=== PATIENT | male | born 1955 | race Caucasian/White ===

== ENCOUNTER 2016-12-01 17:40 | Inpatient (IN) | payer OTHER ==
[~2016-12-01] VITALS: Ht 167.6 cm; Wt 56.0 kg
--- NOTE | ~2016-12-01 | ECHO ---
Transthoracic Echocardiography Report (TTE) Demographics Patient Name JEREMY GLOVER Date of Study 12/02/2016 Patient Number [id number] Visit Number [id number] Date of 1955 Room Number G6211 Gender Male Number Age 60 year(s) Referring [facility] Sugar Refiner Matty Hauser RDCS, Physician Toñito RVT, RDMS, WARDROBE CUSTODIAN Physician Interpreting Beatriz Aguilar A Cnp Physician Supervising Ordering Victorina Brantley MD, MD/MLP Physician Nurse Stress Licensed Mortgage Loan Officer Conclusions Contractility Score Summary Normal Left Ventricular contractility was noted. Summary The estimated left ventricular ejection fraction is 55-60%. Normal biventricular systolic function. Biatrial dilatation. Mild age related valvular changes with mild mitral and tricuspid regurgitation. Procedure Type of Study TTE procedure:2D Echocardiogram, M-Mode, Doppler , Color Doppler. Procedure Date Date: 12/02/2016 Start: 07:00 AM Study Location: Inpatient Portable Technical Quality: Good visualization Indications:Chest pain. Additional Indications:Pre OP clearance Appropriate Use Criteria: 9 Patient Status: ALESSANDRO Rhythm: NSR HR: 76 bpm BP: 170/91 mmHg M-Mode/2D Measurements LV Diastolic Dimension: 4.66 cm LV Systolic Dimension: 3.06 cm LV Septum Diastolic: 0.84 cm LV PW Diastolic: 0.96 cm AO Root Dimension: 2.9 cm Cardiac Output: 6.28 l/min AV Cusp Separation: 1.7 cm RV Diastolic Dimension: 3.43 cm LA volume: 105 ml LVOT: 2 cm RV Base: 4.7 cm LVOT VTI: 26.3 cm RV Mid: 3.9 cm LV Stroke volume: 82.58 ml TAPSE: 2.5 cm TDI-S': 13 cm/s Doppler Measurements AV Peak Velocity: 1.32 m/s MV Peak E-Wave: 0.84 m/s AV Peak Gradient: 6.97 mmHg MV Peak A-Wave: 0.75 m/s AV Mean Gradient: 3 mmHg MV E/A Ratio: 1.12 LVOT Peak Velocity: 1.25 m/s MV P1/2t: 73 msec TR Gradient:27.46 mmHg PV Peak Velocity: 1 m/s Estimated RAP:3 mmHg PV Peak Gradient: 3.99 mmHg Estimated RVSP: 30 mmHg Estimated PASP: 30.46 mmHg E' Septal Velocity: 0.1 m/s A' Septal Velocity: 0.12 m/s E' Lateral Velocity: 0.14 m/s A' Lateral Velocity: 0.08 m/s Findings Left Ventricle Normal left ventricle size and function. Diastolic assessment reveals Grade I diastolic dysfunction. Right Ventricle Mild dilated right ventricle. Left Atrium The left atrium is moderately dilated when indexed to the BSA. Right Atrium The right atrium is moderately dilated. IVC measures 1.6 cm with inspiratory collapse. Mitral Valve Mild calcification of the mitral valve. Mild mitral regurgitation by color Doppler. Aortic Valve The aortic valve is mildly sclerotic. No significant aortic stenosis or insufficiency. Tricuspid Valve Mild tricuspid regurgitation by color Doppler. Normal estimated pulmonary artery pressure. Pulmonic Valve The pulmonic valve is not well visualized. Pericardial Effusion No evidence of pericardial effusion. Miscellaneous Visualized portions of the aortic root and ascending aorta appear normal in size. Possibly mobile plaque in the aortic root Pleural Effusion No evidence of pleural effusion. Contractility Score LV regional wall motion:(0-Non visualized 1-Normal 2-Hypokinesis 3-Akinesis 4-Dyskinesis 5-Aneurysm) Signature dtt: Macey Henderson dtd: 12/02/16 0700 Physician Self Edit
--- NOTE | ~2016-12-01 | DS ---
PATIENT'S NAME: JEREMY GLOVER [facility] AGE: 60 Y [address] ROOM: [place] [address] LOCATION: [facility] ADMIT DATE: 12/01/2016 Discharge Summary DISCHARGE DATE: 12/03/2016 FAMILY PHYSICIAN: RACHEL HUGHES ATTENDING PHYSICIAN: Toñito Hill ADMITTING DIAGNOSIS: Anemia of blood loss. DISCHARGE DIAGNOSES: 1. Anemia. 2. Esophageal mass suspicious for malignancy. SECONDARY DIAGNOSES: 1. Chronic obstructive pulmonary disease. 2. Moderate protein calorie malnutrition. 3. Chronic obstructive pulmonary disease. 4. Hypertension. PROCEDURE: EGD which shows esophageal mass and CT chest and abdomen that shows esophageal mass and no metastasis. CONSULTATION: GI. HISTORY OF PRESENT ILLNESS: The patient is a 60-year-old male who presented initially to his primary care physician with complaint of epigastric pain. At the time of the complaint, he also reports of poor appetite and loss of 20 pounds in the past 3 months. Because of all these symptoms, the patient went to outside facility at [place], [place], for evaluation. Over there, the patient was found to have extreme anemic with hemoglobin around 4. The patient was transfused 1 L of packed red blood cells and transferred to our facility. HOSPITAL COURSE: On initial evaluation, the patient was found to have hemoglobin of 5.9. The patient was transfused 3 units of packed red blood cells. The patient was initially started on octreotide drip and Protonix drip. GI was consulted. The patient had EGD done. EGD shows esophageal mass. Biopsy was taken. CT abdomen and pelvis was done to evaluate for metastasis. CT abdomen and pelvis did not show any signs of metastasis except for the esophageal mass which appears to be primary esophageal from the image. The patient was transfused here with 3 units of packed red blood cells during his stay, his hemoglobin was stable during stay. On day of discharge, his hemoglobin is 8.9. The patient and his had discussion with them about the finding. I suggested the patient to be followed by oncologist. However, the patient wants to wait on the biopsy results and want to follow with PATIENT'S NAME: JEREMY GLOVER [facility] AGE: 60 Y [address] ROOM: [place] [address] LOCATION: [facility] ADMIT DATE: 12/01/2016 Discharge Summary DISCHARGE DATE: 12/03/2016 FAMILY PHYSICIAN: RACHEL HUGHES ATTENDING PHYSICIAN: Toñito Hill primary care physician for now before they see an oncologist. CONDITION: Stable. DISPOSITION: Home. DISCHARGE MEDICATION: Please see MAR. DISCHARGE INSTRUCTION: If the patient does have worsening of epigastric pain, hematemesis, severe nausea and vomiting, and hematochezia to go to the emergency department. PENDING STUDIES: Esophageal biopsy. FOLLOWUP: Follow up with primary care physician within 1 week. Greater than 30 minutes was spent on discharge planning. MD STEPHEN SORIANO/laura /[id number] d: 12/03/16 1235 t: 12/03/16 1559, DISCHARGE SUMMARY
--- NOTE | ~2016-12-01 | CON ---
PATIENT'S NAME: JEREMY GLOVER [facility] AGE: 60 Y [address] ROOM: [address] [place], [place] [address] LOCATION: GICU ADMIT DATE: 12/01/2016 Consultation DISCHARGE DATE: FAMILY PHYSICIAN: RACHEL HUGHES ATTENDING PHYSICIAN: TAMERA HUI DATE OF CONSULTATION: 12/02/2016 REFERRING PHYSICIAN: Malcom Adams MD REFERRING PROVIDER: Anupama Charles MD REASON FOR CONSULTATION: Acute blood loss anemia. HISTORY OF PRESENT ILLNESS: This is a pleasant 60-year-old gentleman who states he does not frequent healthcare providers frequently. He was seen at an outside facility with complaints of right upper quadrant pain with radiation to the left upper quadrant as well as mid epigastric area. He does have a history of alcoholism with drinking approximately 12 beer a day. He states over the past 6 months, this has been decreased to less than a 6 pack of beer per day. Then, up until 2 weeks ago, he states that he has discontinued drinking as he generally has not felt good. He denies any melena or hematochezia, hematemesis, or any other evidence of blood loss. Denies any constipation. He states that he has a normal bowel movement without any complications. He does state that when he was drinking alcohol, his bowel movements were more significantly loose. He also does endorse a weight loss of approximately 20 pounds in the past 3 months. Denies any history of upper endoscopy or colonoscopy. He also denies any NSAID use. On evaluation at outside facility, he was found to be extremely anemic of a hemoglobin around 4. CT of abdomen and pelvis with contrast only showed hepatic steatosis and moderate amount of stool throughout the large bowel and chronic lumbar spine degenerative changes. The patient was then transferred to [facility] for definitive care. He now has received a total of 4 units of packed red blood cells with the 4th unit currently infusing. Last hemoglobin checked was completed this morning with a hemoglobin of 7.6, hematocrit of 24.0. The patient denies any again, associated change in bowels. He does complain of some mid epigastric discomfort that he states usually starts in the right upper quadrant with radiation to the mid epigastric and left upper quadrant. Denies any nausea or vomiting as well. PAST MEDICAL HISTORY: History of alcoholism, COPD, hypertension, and rosacea. He also does endorse a history of melena though. He states that this resolved after utilizing PATIENT'S NAME: JEREMY GLOVER [facility] AGE: 60 Y [address] ROOM: [address] [place], [place] [address] LOCATION: GICU ADMIT DATE: 12/01/2016 Consultation DISCHARGE DATE: FAMILY PHYSICIAN: RACHEL HUGHES ATTENDING PHYSICIAN: TAMERA HUI for a few weeks. PAST SURGICAL HISTORY: He denies any upper endoscopy or colonoscopy. SOCIAL HISTORY: He is a former cigarette smoker, smoking approximately four packs per day for a number of years. He quit roughly 7 years ago. He also admits to heavy alcohol use with 12 pack of beer per day for roughly 40 years. He does state over the past 6 months, this has decreased to less than 6 per day and states that he has only intermittently used over the past few weeks due to generalized not feeling well. He uses marijuana on a day-to-day basis. Denies any other illegal or illicit drugs. FAMILY HISTORY: The patient's parents, both have atrial fibrillation. He denies any known gastrointestinal diseases or cancers. ALLERGIES: NO KNOWN MEDICATION ALLERGIES. CURRENT MEDICATIONS: Please refer to the medication administration record. REVIEW OF SYSTEMS: An all-point review of systems was completed. All were negative except for those identified in the history of present illness. PHYSICAL EXAMINATION: GENERAL: A pleasant 60-year-old gentleman, seen in the intensive care, lying in bed, who appears to be in no acute distress. VITAL SIGNS: Temperature 98.1, pulse of 80, respirations of 18, blood pressure 122/74, and oxygen saturations is 95% on room air. SKIN: [place], warm, and dry. No jaundice. HEENT: Head is normocephalic and atraumatic. Pupils are equal, round, and reactive to light. Sclerae are clear, nonicteric. Oral mucosa is pink and moist. NECK: Soft and supple. CARDIOVASCULAR: Regular. Normal S1 and S2. RESPIRATORY: Respirations even and unlabored. LUNGS: Clear to auscultation. ABDOMEN: Soft, round, tender in the mid epigastric area, right upper quadrant and left upper quadrant. No rebound, rigidity, or guarding noted. Bowel sounds are positive. MUSCULOSKELETAL: No muscle weakness or atrophy. PATIENT'S NAME: JEREMY GLOVER [facility] AGE: 60 Y [address] ROOM: [address] [place], [place] [address] LOCATION: [facility] ADMIT DATE: 12/01/2016 Consultation DISCHARGE DATE: FAMILY PHYSICIAN: RACHEL HUGHES ATTENDING PHYSICIAN: TAMERA HUI EXTREMITIES: No edema. NEUROLOGICAL: Grossly nonfocal. LABORATORIES AND DIAGNOSTICS: Cardiac enzymes have been within normal limits. Most recent hemoglobin showed as 7.6, hematocrit was 24.0. Chemistry panel includes a glucose of 211, BUN of 11, creatinine 0.7, sodium 134, potassium of 3.8, chloride of 105, and CO2 at 20. Albumin low at 2.1, AST of 12, ALT of 13, alkaline phosphatase of 58, total bilirubin 1.5, and direct bilirubin 0.3. Magnesium 1.9. Hemoglobin A1c was 5.9, iron 66, TIBC is 215, percent saturation is 31, and ferritin 11.3. ASSESSMENT AND PLAN: Again, this is a very pleasant 60-year-old gentleman who was transferred from an outside facility with severe anemia. The patient has been transfused a total of 4 units of packed red blood cells at this time. He denies any known evidence of blood loss. He also does have a significant history of alcohol use, though denies any history of diagnosis of cirrhosis or varices. The patient currently has been placed on Protonix and octreotide. At this time, we will go forth with an upper endoscopy for acute blood loss anemia as well as noted mid epigastric discomfort. If negative, it was discussed with the patient that a possible colonoscopy may be warranted though. Further recommendations will be given status post upper endoscopy. Thank you for this consult. ROJELIO HODGE APRN FOR MD TRENTON HUMPHREY/alliel /[id number] d: 12/02/16 1728 t: 12/07/16 1210, CONSULTATION REPORT
--- NOTE | ~2016-12-01 | HP ---
PATIENT'S NAME: JEREMY GLOVER [facility] AGE: 60 Y [address] ROOM: [address] [place], [place] [address] LOCATION: [facility] ADMIT DATE: 12/01/2016 History & Physical DISCHARGE DATE: FAMILY PHYSICIAN: PHYSICIAN, UNKNOWN ATTENDING PHYSICIAN: TAMERA HUI DATE OF SERVICE: CHIEF COMPLAINT: Dizziness upon standing, abdominal pain, poor appetite, exertional dyspnea, weight loss, and generalized weakness. HISTORY OF PRESENT ILLNESS: This is a 60-year-old male who only sees his primary care physician once a year and who says that for the last year he has been complaining of right upper quadrant pain with radiation to the left upper quadrant and epigastric area, more intense in the epigastric area, and sometimes travels up to bilateral lower ribs. He says that the epigastric pain is worse with eating within the first few minutes. He strongly denies any melena, hematochezia, hematemesis, hematuria, hemoptysis, or coffee-ground emesis. He states that he also denies constipation. He states that he has bowel movement regularly everyday and color is brown and of normal consistency and this is according to the patient. At the same time, he also complains of weight loss with poor appetite roughly about 20 pounds in the last 3 months. He also complained of pain that is chronic in the lower back and also in the posterior neck, which is chronic and has not changed. He also complained of dizziness upon standing in the last 2 months. Because of all these problems, the patient also complains of some exertional dyspnea for the last 2 months. He is a heavy smoker about 4 pack per day of cigarettes for many years and he quit about 7 years ago. He was also a heavy alcohol drinker about 12 packs of beers per day for roughly 40 years, but he quit just roughly 2 weeks ago. The patient also chronically takes aspirin at home on a daily basis. He denies any colonoscopy or any upper endoscopy in the past. Because of all these symptoms, the patient went to outside facility in [place], [place] for evaluation. Over there, the patient was found to be extremely anemic of hemoglobin around 4s and he also got a CT scan of the abdomen and pelvis with contrast which only showed hepatic steatosis and moderate amount of stool throughout the large bowel and chronic lumbar spine degenerative changes. The patient got 1 L of normal saline bolus followed by 1 unit of packed red blood cell transfusion and the patient was sent over here for further care. REVIEW OF SYSTEMS: PATIENT'S NAME: JEREMY GLOVER [facility] AGE: 60 Y [address] ROOM: [address] [place], [place] [address] LOCATION: [facility] ADMIT DATE: 12/01/2016 History & Physical DISCHARGE DATE: FAMILY PHYSICIAN: PHYSICIAN, UNKNOWN ATTENDING PHYSICIAN: TAMERA HUI As mentioned in the history of present illness. All other systems reviewed and were negative except those mentioned in history of present illness. PAST MEDICAL HISTORY: 1. COPD, not on home oxygen. 2. Hypertension. 3. Rosacea. 4. History of melena in the past, but he states that he was given Protonix and it resolved. ALLERGIES: NONE. HOME MEDICATIONS: Currently, it is being reconciled, but he does take aspirin at home on a daily basis. SOCIAL HISTORY: The patient was a former cigarette smoker about 4 pack per day for many years and he quit just roughly 7 years ago. He also was a heavy alcohol drinker about 12 pack of beers per day for roughly 40 years and he quit just roughly 2 weeks ago. He uses marijuana daily. He denies any IV or illegal drugs. FAMILY HISTORY: Both parents have atrial fibrillation, but he denies any cancer in the father or in the mother. PAST SURGICAL HISTORY: None. PHYSICAL EXAMINATION: VITAL SIGNS: At the time of evaluation, temperature 98, blood pressure 131/87, respirations 16, saturation 98% on room air, and also heart rate of 77. GENERAL APPEARANCE: The patient is pale and alert and oriented x3. Currently, in no acute distress. The patient is frail looks older than his age and also is cachectic. HEENT: Pupils are equally round and reactive to light. Extraocular muscles intact. Anicteric sclerae. Nasal turbinates are normal bilaterally. Dry oral mucosa. NECK: No JVD. CARDIOVASCULAR: Regular rate and rhythm. Normal S1, S2. No murmurs, no rubs, no gallops. RESPIRATORY: Clear to auscultation. However, very diffuse breath sounds diffusely. No rales, no rhonchi, no wheezing, no crackles. PATIENT'S NAME: JEREMY GLOVER [facility] AGE: 60 Y [address] ROOM: [address] [place], [place] [address] LOCATION: [facility] ADMIT DATE: 12/01/2016 History & Physical DISCHARGE DATE: FAMILY PHYSICIAN: PHYSICIAN, UNKNOWN ATTENDING PHYSICIAN: TAMERA HUI ABDOMEN: Tenderness to palpation in the right upper quadrant epigastric area and left upper quadrant. No rebound tenderness. No abdominal rigidity. Bowel sounds present. No palpable mass. No ascites. EXTREMITIES: No edema in upper or lower extremities. SKIN: No ulcer, no rash, no cyanosis. NEUROLOGICAL: Grossly nonfocal. LABORATORY DATA: Currently, our blood work showed lactic acid 0.9. Cardiac enzyme pending. White blood cell 9.6, hemoglobin 5.9, hematocrit 19.2, and platelet 394. Chemistry panel, liver function, magnesium, phosphorus, INR, PTT, GFR, and iron panel, currently all pending. Procalcitonin also pending. Urinalysis also pending. IMAGING STUDIES: CT scan of abdomen and pelvis from the outside facility with contrast show hepatic steatosis and moderate amount of stool seen throughout the large bowel and the lumbar spinal degenerative changes. ASSESSMENT AND PLAN: 1. Regarding his presumed chronic blood loss anemia: The patient is hemodynamically stable. He does have risk factor for liver disease from heavy alcohol drinking in the past. He also has daily aspirin use. Given that patient is hemodynamically stable and denies any melena, hematuria, hematochezia, or coffee-ground emesis, likely he has chronic gastrointestinal blood loss. He also has weight loss. My differential will be most likely he probably has peptic ulcer disease given that his epigastric area is tender with the first few bites when he eats. I will cover him with intravenous Protonix bolus followed by drip. Give him 2 more units of blood right now to keep the hemoglobin more than 8. Continue intravenous fluids for hydration. Given that he also has risk factors for liver disease, I also worry about esophageal varices; therefore, I am going to cover him with intravenous octreotide bolus followed by drip. N.p.o. I will get a Hemoccult blood test x3. Check iron panel and transfuse as needed to keep hemoglobin more than 8. I am going to contact on-call GI regarding timing of potential colonoscopy and EGD. Given that the patient rarely see a physician and he has many risk factors for cardiovascular disease, I am going to get EKG, cardiac enzymes, and also get an echo in the morning to make sure the patient can safely undergo EGD and colonoscopy under sedation. If the echo, EKG, or cardiac enzymes came back abnormal then endoscopy will be delayed until patient is seen and cleared by Cardiology. In the meantime, the patient will be on telemetry monitoring. I will also get lipid panel and A1c to assess his cardiovascular risks. Further plan will depend on clinical PATIENT'S NAME: JEREMY GLOVER [facility] AGE: 60 Y [address] ROOM: [address] [address] LOCATION: [facility] ADMIT DATE: 12/01/2016 History & Physical DISCHARGE DATE: FAMILY PHYSICIAN: PHYSICIAN, UNKNOWN ATTENDING PHYSICIAN: TAMERA HUI. 2. Regarding his chronic obstructive pulmonary disease: Currently, not in flare. I am going to get a chest x-ray right now and also get a KUB, KUB to rule out free air and chest x-ray to look for any lung mass. If there is any mass, I am concerned about lung cancer given that he has weight loss; however, he could also have a colon cancer due to the weight loss and anemia. Either way, if the chest x-ray showed anything unusual, we will get a CAT scan of the chest to further evaluate for any lung mass for potential lung cancer. Further plan will depend on clinical course. Also, I will get an RT to give nebulization per RT assessment for his chronic obstructive pulmonary disease. 3. Regarding his hypertension: Hold blood pressure medications in the setting of anemia. 4. He is a full code. Time spent in care on the day of admission was 70 minutes, where 20 minutes was spent on chart review and the remainder of the time was spent on interview and physical examination and also on counseling. I spent a large amount of time with the patient and the patient's going over the plan of care and they had several questions about the condition and also the patient was very hesitant about undergoing EGD and colonoscopy and I spent a large amount of time with the patient and the patient's regarding the benefit and risks and the importance of undergoing EGD and colonoscopy to get to the bottom of the problem. Further plan will depend on clinical course. I answered all their questions and concerns to their satisfaction. This time also includes placing a phone call to the on-call GI specialist about the case. Further plan will depend on clinical course. MD RHODA KRUSE/laura /[id number] D: [id number] T: [id number] HISTORY & PHYSICAL
[2016-12-01] MEDS ORDERED: PROAIR HFA8.5 GM INH (21:22)
[2016-12-01] MEDS ORDERED: GLUCOSAMINE &1 EAC1 PO (21:30)
[2016-12-01] MEDS ORDERED: TYLENOL325 MG PO (21:31)
[2016-12-01] MEDS ORDERED: ALBUTEROL2.5 MG/31 INH (21:32)
[2016-12-01] MEDS ORDERED: ASPIRIN325 MG PO (21:33)
[2016-12-01] MEDS ORDERED: DOXYCYCLINE100 MG PO (21:34)
[2016-12-01] MEDS ORDERED: PRINIVIL (ZESTR20 MG PO (21:35)
[2016-12-01] MEDS ORDERED: THERAGRAN-M1 TAB PO (21:37)
[2016-12-01] MEDS ORDERED: NITROSTAT0.4 MG SL (21:38)
[2016-12-01] MEDS ORDERED: LACTINEX (FLORA1 TAB PO (21:39)
[2016-12-01] MEDS ORDERED: PRILOSEC20 MG PO (21:39)
[2016-12-01] MEDS ORDERED: CLARITIN10 MG PO (21:40)
[2016-12-01 21:48] LABS: BASOPHIL % 0.2 %; EOSINOPHIL # 0.1 K/uL (0.0-0.5); EOSINOPHIL % 0.7 %; HEMATOCRIT 19.2 % (37.0-53.0); IMMATURE GRANULOCYTE % 0.3 %; LYMPHOCYTE # 1.5 K/uL (0.8-4.0); MCH 21.4 pg (27.0-34.0); MCHC 30.7 gm/dL (32.0-36.5); MCV 69.6 fl (83.0-98.0); MONOCYTE # 1.2 K/uL (0.0-1.0); MONOCYTE % 12.8 %; MPV 9.5 fl (9.4-12.4); NEUTROPHIL # (ANC) 6.7 K/uL (1.4-9.0); NRBC % 0 /100WBC (0-0.00); PLATELET COUNT 394 K/uL (150-450); RBC 2.76 M/uL (3.50-5.50); RDW-CV 21.5 % (11.9-14.6); WBC 9.6 K/uL (4.0-11.0)
[2016-12-01 21:51] LABS: HEMOGLOBIN 5.9 g/dL (11.0-16.0)
[2016-12-01 22:02] LABS: INR - (THERAPEUTIC) 1.03 (0.92-1.07); PROTIME 10.8 SECONDS (9.8-11.4); PTT 31 SECONDS (25-32)
[2016-12-01 22:11] LABS: ANION GAP 13.7 (10.0-19.0); BLOOD UREA NITROGEN 15 mg/dL (6-24); CALCIUM 8.5 mg/dL (8.5-10.5); CHLORIDE 103 mMol/L (96-110); CO2 20 mMol/L (22-32); CPK 17 IU/L (35-332); CREATININE 0.7 mg/dL (0.6-1.3); MAGNESIUM 1.9 mg/dL (1.8-2.6); POTASSIUM 3.7 mMol/L (3.7-5.1); SODIUM 133 mMol/L (135-145)
[2016-12-01 22:24] LABS: ALBUMIN 2.1 gm/dL (3.5-5.0); TOTAL BILIRUBIN 1.5 mg/dL (0.0-1.5); TOTAL PROTEIN 5.5 g/dL (6.0-8.4)
[2016-12-01 23:11] LABS: BILIRUBIN URINE NEGATIVE (NEGATIVE); BLOOD URINE NEGATIVE /UL (NEGATIVE); COLOR URINE YELLOW (YELLOW); GLUCOSE URINE NEGATIVE (NEGATIVE); KETONE URINE 50 mg/dL (NEGATIVE); LEUKOCYTES URINE NEGATIVE /UL (NEGATIVE); NITRITE URINE NEGATIVE (NEGATIVE); PROTEIN URINE 15 mg/dL (NEGATIVE); TURBIDITY URINE CLEAR (CLEAR); UROBILINOGEN URINE NORMAL (NORMAL)
[2016-12-01 23:22] LABS: BACTERIA URINE NEGATIVE (NEGATIVE); EPITHELIAL URINE 0-2 #/HPF (NEGATIVE); RBC URINE 0-2 #/HPF (NEGATIVE); WBC URINE 0-2 #/HPF (NEGATIVE)
--- NOTE | 2016-12-02 04:44 | NUR ---
Significant Event: Patient to ICU apprix 2045, alert, oriented et cooperative. PERRLA, equal but weak strength thorougout. LS clear, 99-100% on RA. Requests PRN treatment per RT. BS x4, clear liquid diet. C/O headache et back pain, PRN Morphine given x2, relief stated. 2units PRBC's given for hgb of 5.9,. L) AV et R) AC PIV's patent, flushes well, good blood return, drsg CDI. Follow up:
[2016-12-02 06:13] LABS: HEMOGLOBIN 7.6 g/dL (11.0-16.0)
[2016-12-02 08:52] LABS: ANION GAP 12.8 (10.0-19.0); BLOOD UREA NITROGEN 11 mg/dL (6-24); CALCIUM 7.9 mg/dL (8.5-10.5); CHLORIDE 105 mMol/L (96-110); CO2 20 mMol/L (22-32); CREATININE 0.7 mg/dL (0.6-1.3); POTASSIUM 3.8 mMol/L (3.7-5.1); SODIUM 134 mMol/L (135-145)
[2016-12-02 16:02] LABS: HEMOGLOBIN 8.4 g/dL (11.0-16.0)
--- NOTE | 2016-12-02 17:02 | NUR ---
Introduced self and role of care management to pt. [place] He states he does have a (second marriage) and 5 children but 5 are up in [place]. HE states he is very independent with cares just not feeling very well. I asked about his drinking and he states he quit about 2 weeks ago and even then had only 2-3 because he did not feel well then quit. I asked about counselors and information on treatment and he denies. He is hoping to find the source of bleeding and then to go home. HE doctors up in [facility]. WIll continue to follow.
--- NOTE | 2016-12-02 18:01 | NUR ---
ASSUMED CARE OF PATIENT IN THE MORNING, HE HAD A 2 D ECHO , EGD SCOPE WITH GI TODAY. BIOPSY TAKEN DURING EGD. PATIENT HAD 1 UNIT OF PRBD'S TODAY, HIS VITALS WERE STABLE THRUOUT THE DAY. WITH HIM AT ALL TIMES. CT CHEST , ABD, PELVIS IN AM. IV FLUIDS STILL CONTD.
--- NOTE | 2016-12-03 04:50 | NUR ---
Significant Event: Patient is A/O, c/o back et head pain rated at a 5-7 on a 0-10 scale, PRN Morphine given x3 with relief. Neurologically intact, denies numbness or tingling. LS clear/dim in bases, SpO2 >95 on RA. Max temp 99.5, SBPs 130-140s. BS x4, tenderness on palpation, tolerates clear liquid diet well. PIV's x2, no blood return but flushes well, NS running at 100/hr. Down to CT for abdominal/pelvic scan with contrast. Slept well t/o noc with call light in reach. Follow up: Possible DC home today.
[2016-12-03 06:09] LABS: BASOPHIL % 0.4 %; EOSINOPHIL # 0.2 K/uL (0.0-0.5); HEMATOCRIT 28.5 % (37.0-53.0); HEMOGLOBIN 8.9 g/dL (11.0-16.0); IMMATURE GRANULOCYTE # 0.1 K/uL (0.0-0.3); IMMATURE GRANULOCYTE % 0.5 %; LYMPHOCYTE # 0.9 K/uL (0.8-4.0); LYMPHOCYTE % 8.7 %; MCHC 31.2 gm/dL (32.0-36.5); MONOCYTE # 1.2 K/uL (0.0-1.0); MPV 8.8 fl (9.4-12.4); NEUTROPHIL # (ANC) 8.3 K/uL (1.4-9.0); NEUTROPHIL % 77.4 %; NRBC % 0 /100WBC (0-0.00); PLATELET COUNT 324 K/uL (150-450); RDW-CV 21.1 % (11.9-14.6); WBC 10.8 K/uL (4.0-11.0)
[2016-12-03 06:13] LABS: MCH 22.9 pg (27.0-34.0); MCV 73.3 fl (83.0-98.0); RBC 3.89 M/uL (3.50-5.50)
[2016-12-03 06:21] LABS: ANION GAP 12.7 (10.0-19.0); CALCIUM 8.2 mg/dL (8.5-10.5); CHLORIDE 102 mMol/L (96-110); CO2 21 mMol/L (22-32); CREATININE 0.5 mg/dL (0.6-1.3); MAGNESIUM 1.8 mg/dL (1.8-2.6); PHOSPHORUS 3.2 mg/dL (2.5-4.9); POTASSIUM 3.7 mMol/L (3.7-5.1); SODIUM 132 mMol/L (135-145)
[2016-12-03 06:25] LABS: ALBUMIN 1.9 gm/dL (3.5-5.0); BLOOD UREA NITROGEN 5 mg/dL (6-24)
--- NOTE | 2016-12-03 12:05 | NUR ---
PATIENT ASSESSMENT DONE. PRIMARY PHYSICIAN SAW HIM TODAY AND ADVISED DISCHARGE. ALL IVS REMOVED AND DISCONTINUED.TELEMON DISCONTINUED.
[2016-12-03] MEDS ORDERED: PROTONIX40 MG PO (12:09)
[2016-12-03] MEDS ORDERED: FEOSOL325 MG PO (12:09)
--- NOTE | 2016-12-03 12:47 | NUR ---
PATIENT DISCHARGED PER ORDERS.DISCHARGE INSTRUCTIONS EXPLAINED AND FOLLOW UP APPOINTMENTS EXPLAINED. TRANSPORTED TO FRONT DOOR VIA WHEELCHAIR.
== END 2016-12-03 12:35 | disposition disaster alternative care site (69) | DRG 812 ==
LOC: GICU 20:40
PROVIDERS: Internal Medicine; ADMIT Internal Medicine
PROC: 30233N1 Transfusion of Nonautologous Red Blood Cells into Peripheral Vein, Percutaneous Approach (ICD-10-PCS; principal; 2016-12-01)
PROC: 0DB48ZX Excision of Esophagogastric Junction, Via Natural or Artificial Opening Endoscopic, Diagnostic (ICD-10-PCS; 2016-12-02)
DX: D62 Acute posthemorrhagic anemia (principal); E44.0 Moderate protein-calorie malnutrition; J44.9 Chronic obstructive pulmonary disease, unspecified; I10 Essential (primary) hypertension; Z87.891 Personal history of nicotine dependence; L71.9 Rosacea, unspecified; K21.9 Gastro-esophageal reflux disease without esophagitis; F10.10 Alcohol abuse, uncomplicated
CPT/HCPCS: C9113; J2270; J2354; J2704; J7030; J7040; J7050; P9016; Q9967